=== PATIENT | female | born 1940 | race Two or more races ===

== ENCOUNTER 2021-09-20 07:56 | Outpatient (CLI) | payer OTHER ==
[~2021-09-20 07:56] MED LIST: GLUMETZA500 MG; SYNTHROID175 MCG
== END 2021-09-20 07:59 | disposition home or self-care (01) ==
LOC: TOM 07:56
PROVIDERS: ATTEND Internal Medicine Gastroenterology
DX: K63.5 Polyp of colon (principal); K56.609 Unspecified intestinal obstruction, unspecified as to partial versus complete obstruction

== ENCOUNTER 2023-02-21 08:54 | Outpatient (CLI) | payer OTHER | END 2023-02-21 08:58 | disposition home or self-care (01) | LOC: RX STUDY 08:54 | PROVIDERS: ATTEND Internal Medicine Gastroenterology | DX: R10.13 Epigastric pain (principal) ==

== ENCOUNTER 2024-08-08 14:15 | Emergency (ER) | payer OTHER ==
[~2024-08-08] VITALS: Ht 152.4 cm; Wt 45.4 kg
[2024-08-08 15:20] VITALS: BP 102/57; O2SAT 98
[2024-08-08] MEDS ORDERED: PANTOPRAZOLE SO40 MG PO (15:23)
[2024-08-08] MEDS ORDERED: SERTRALINE HCL25 MG PO (15:23)
[2024-08-08] MEDS ORDERED: METOPROLOL SUCC25 MG PO (15:24)
[2024-08-08] MEDS ORDERED: ROSUVASTATIN CA10 MG PO (15:24)
[2024-08-08] MEDS ORDERED: LOSARTAN POTASS25 MG PO (15:24)
[2024-08-08] MEDS ORDERED: ACETAMINOPHEN 500 MG GEL..CAP PO ONE ×2 (16:30→17:20)
[2024-08-08 18:16] LABS: HEMATOCRIT 40.1 % (36.0-45.00); HEMOGLOBIN 13.6 g/dL (12.0-15.00); MEAN CELL VOLUME 88.4 fL (80.00-100.00); MEAN CORPUSCULAR HEMOGLOBIN 30.1 pg (27.00-32.0); PLATELET COUNT 187 K/uL (150-450); RED BLOOD COUNT 4.53 M/uL (4.00-6.00); RED CELL DISTRIBUTION WIDTH 12.9 % (11.5-14.5)
[2024-08-08 18:19] LABS: PH,URINE 6.5 (5.0-8.0); URINE APPEARANCE Clear; URINE BILIRRUBIN Negative (NEGATIVE); URINE BLOOD Negative; URINE COLOR Dark Yellow; URINE GLUCOSE Negative (NEGATIVE); URINE KETONE Trace (NEGATIVE); URINE LEUKOCYTE Trace; URINE NITRATE Negative; URINE PROTEIN Negative (NEGATIVE); URINE UROBILINOGEN 0.2 E.U./dl
[2024-08-08 18:25] LABS: URINE BACTERIA 20.7 uL (0.0-1933); URINE EPITHELIAL CELLS 6.8 uL (0.0-38.8); URINE RBC 5.7 uL (0.0-20.8)
[2024-08-08 18:41] LABS: CALCIUM 9.3 mg/dL (8.5-10.1); CREATININE SERUM 0.85 mg/dL (0.55-1.02); GFR 63.87; POTASSIUM 5.12 mEq/L (3.5-5.1)
[2024-08-08 18:50] LABS: URINE CAST 0.88 uL (0.0-1.40)
== END 2024-08-08 19:49 | disposition home or self-care (01) ==
LOC: ER 14:18
PROVIDERS: General Practice
DX: B34.9 Viral infection, unspecified (principal); R53.81 Other malaise; Z20.822 Contact with and (suspected) exposure to COVID-19